=== PATIENT | male | born 1960 | race Caucasian/White ===

== ENCOUNTER 2018-06-23 09:06 | Inpatient (IN) | payer OTHER ==
[2018-06-23] MEDS: MECLIZINE 12.5 MG TAB PO ×2 (10:46→12:27)
[2018-06-23] MEDS: DIAZEPAM 5 MG TAB PO (12:27)
[2018-06-23] MEDS: DIAZEPAM 5 MG/ML SYG IV ×2 (15:05→23:11)
[2018-06-23] MEDS ORDERED: SOD CHLORIDE 0.9% 1,000 ML IV (15:42)
[2018-06-23] MEDS ORDERED: ONDANSETRON 4 MG INJ IV ×2 (16:00→17:00)
[2018-06-23] MEDS ORDERED: ACETAMINOPHEN 325 MG TAB PO ×2 (16:00→17:00)
[2018-06-23 16:01] LABS: ADD MAN DIFF? NO
[2018-06-23 16:09] LABS: WHITE BLOOD COUNT 9.7 10^3/ul (4.8-10.8)
[2018-06-23 16:09] LABS: BASOPHIL # 0.1 10^3/ul (0.0-0.1); EOSINOPHILS # 0.2 10^3/ul (0.0-0.5); EOSINOPHILS % 1.9 % (0.0-7.0); HEMOGLOBIN 14.6 g/dl (14.0-18.0); LYMPHOCYTES # 1.9 10^3/ul (0.8-2.9); LYMPHOCYTES % 19.3 % (15.0-51.0); MEAN CORPUSCULAR HEMOGLOBIN 29.6 pg (29.0-33.0); MEAN CORPUSCULAR HGB CONC 33.2 g/dl (32.0-37.0); MEAN CORPUSCULAR VOLUME 89.1 fl (82.0-101.0); MEAN PLATELET VOLUME 9.9 fl (7.4-10.4); MONOCYTE # 0.9 10^3/ul (0.3-0.9); MONOCYTES % 8.8 % (0.0-11.0); NEUTROPHIL # 6.6 10^3/ul (1.6-7.5); NEUTROPHILS % 68.7 % (39.0-77.0); PLATELET COUNT 315 10^3/UL (140-415); RED BLOOD COUNT 4.94 10^6/ul (4.70-6.10)
[2018-06-23 16:26] LABS: ALANINE AMINOTRANSFERASE 28 IU/L (13-69); ALBUMIN 4.4 g/dl (3.3-4.9); ALBUMIN/GLOBULIN RATIO 1.25; ALKALINE PHOSPHATASE 106 IU/L (42-121); ANION GAP 16 (5-13); ASPARTATE AMINO TRANSFERASE 36 IU/L (15-46); BILIRUBIN,INDIRECT 0.2 mg/dl (0-1.1); BILIRUBIN,TOTAL 0.2 mg/dl (0.2-1.3); BLOOD UREA NITROGEN 17 mg/dl (7-20); CARBON DIOXIDE 25 mmol/L (21-31); CHLORIDE 99 mmol/L (97-110); CREATININE 1.04 mg/dl (0.61-1.24); Estimated GFR > 60 mL/min (>60); GLUCOSE 132 mg/dl (70-220); POTASSIUM 3.4 mmol/L (3.5-5.1); SODIUM 140 mmol/L (135-144); TOTAL PROTEIN 7.9 g/dl (6.1-8.1)
[2018-06-23] MEDS ORDERED: HYDROmorphONE 0.5 MG/0.5 ML SYG IV (17:00)
[2018-06-23] MEDS: SOD CHLORIDE 0.9% 1,000 ML IV (17:46)
[2018-06-23] MEDS: FAMOTIDINE 20 MG INJ IV (20:24)
[2018-06-24] MEDS: NACL 0.9% 3 ML SYG IV (02:23)
[2018-06-24] MEDS: SOD CHLORIDE 0.9% 1,000 ML IV ×3 (05:51→16:18)
[2018-06-24 06:42] LABS: ADD MAN DIFF? NO
[2018-06-24 06:56] LABS: WHITE BLOOD COUNT 14.5 10^3/ul (4.8-10.8)
[2018-06-24 06:56] LABS: ABNORMAL IP MESSAGE 1; BASOPHIL # 0.1 10^3/ul (0.0-0.1); BASOPHILS % 0.6 % (0.0-2.0); EOSINOPHILS # 0.2 10^3/ul (0.0-0.5); EOSINOPHILS % 1.5 % (0.0-7.0); HEMATOCRIT 42.5 % (42.0-52.0); HEMOGLOBIN 14.6 g/dl (14.0-18.0); LYMPHOCYTES # 2.4 10^3/ul (0.8-2.9); LYMPHOCYTES % 16.5 % (15.0-51.0); MEAN CORPUSCULAR HGB CONC 34.4 g/dl (32.0-37.0); MEAN CORPUSCULAR VOLUME 87.4 fl (82.0-101.0); MEAN PLATELET VOLUME 9.4 fl (7.4-10.4); MONOCYTE # 1.6 10^3/ul (0.3-0.9); MONOCYTES % 10.9 % (0.0-11.0); NEUTROPHIL # 10.2 10^3/ul (1.6-7.5); NEUTROPHILS % 70.2 % (39.0-77.0); PLATELET COUNT 322 10^3/UL (140-415); POSITIVE DIFF @See below; RED BLOOD COUNT 4.86 10^6/ul (4.70-6.10); RED CELL DISTRIBUTION WIDTH 12.9 % (11.5-14.5)
[2018-06-24 07:41] LABS: HEMOGLOBIN A1C 5.4 % (0-5.9)
[2018-06-24 07:46] LABS: ALANINE AMINOTRANSFERASE 24 IU/L (13-69); ALBUMIN/GLOBULIN RATIO 1.17; ALKALINE PHOSPHATASE 99 IU/L (42-121); ANION GAP 12 (5-13); ASPARTATE AMINO TRANSFERASE 32 IU/L (15-46); BILIRUBIN,INDIRECT 0.3 mg/dl (0-1.1); BILIRUBIN,TOTAL 0.3 mg/dl (0.2-1.3); BLOOD UREA NITROGEN 15 mg/dl (7-20); CARBON DIOXIDE 26 mmol/L (21-31); CHLORIDE 105 mmol/L (97-110); CREATININE 1.03 mg/dl (0.61-1.24); Estimated GFR > 60 mL/min (>60); GLUCOSE 103 mg/dl (70-220); POTASSIUM 3.5 mmol/L (3.5-5.1); SODIUM 143 mmol/L (135-144); TOTAL PROTEIN 7.4 g/dl (6.1-8.1)
[2018-06-24] MEDS: FAMOTIDINE 20 MG INJ IV (08:48)
[2018-06-24] MEDS: ENOXAPARIN 30 MG/0.3 ML SYG SC (08:53)
[2018-06-24] MEDS: MECLIZINE 25 MG TAB PO ×2 (10:49→17:53)
[2018-06-24] MEDS: FAMOTIDINE 20 MG TAB PO (21:39)
[2018-06-24] MEDS: DIAZEPAM 5 MG/ML SYG IV (21:39)
[2018-06-24] MEDS: LOSARTAN 50 MG TAB PO (23:24)
[2018-06-25] MEDS: SOD CHLORIDE 0.9% 1,000 ML IV ×3 (03:10→17:19)
[2018-06-25] MEDS: ASPIRIN 81 MG TAB PO (08:19)
[2018-06-25] MEDS: FAMOTIDINE 20 MG TAB PO ×2 (08:19→21:31)
[2018-06-25] MEDS: LOSARTAN 50 MG TAB PO ×2 (08:20→21:31)
[2018-06-25] MEDS: ENOXAPARIN 30 MG/0.3 ML SYG SC (08:20)
[2018-06-25] MEDS: HYDROCHLOROTHIAZIDE 25 MG TAB PO (08:20)
[2018-06-25] MEDS: MECLIZINE 25 MG TAB PO ×3 (08:26→22:28)
[2018-06-25] MEDS: DIAZEPAM 5 MG/ML SYG IV (21:31)
[2018-06-26] MEDS: MECLIZINE 25 MG TAB PO ×2 (06:40→13:16)
[2018-06-26] MEDS: SOD CHLORIDE 0.9% 1,000 ML IV (06:40)
[2018-06-26] MEDS: LOSARTAN 50 MG TAB PO (08:22)
[2018-06-26] MEDS: FAMOTIDINE 20 MG TAB PO (08:22)
[2018-06-26] MEDS: ASPIRIN 81 MG TAB PO (08:22)
[2018-06-26] MEDS: HYDROCHLOROTHIAZIDE 25 MG TAB PO (08:23)
[2018-06-26] MEDS: ENOXAPARIN 30 MG/0.3 ML SYG SC (08:23)
== END 2018-06-26 13:25 | disposition home or self-care (01) | DRG 149 ==
LOC: E/R 09:06 → 5EC 15:43
DX: H81.10 Benign paroxysmal vertigo, unspecified ear (principal); I10 Essential (primary) hypertension; Z79.82 Long term (current) use of aspirin
CPT/HCPCS: 36415; 70450; 70551; 80053; 83036; 85025; 96374; 99217; 99285-25